=== PATIENT | male | born 1985 | race Caucasian/White ===

== ENCOUNTER 2020-02-12 23:53 | Emergency (ER) | payer OTHER ==
[~2020-02-12] VITALS: Ht 182.9 cm; Wt 75.0 kg
--- NOTE | 2020-02-13 00:12 | NUR ---
RELIEVING RN FOR BREAK, PT DID IV HEROIN TODAY, O2 SATS 80% ON ROOM AIR, LIGHT SNORING RESPIRATIONS, PT AROUSES EASILY BUT FALLS BACK ASLEEP, AND 02 SAT INCREASES TO 94% ON ROOM AIR, PLACED PT ON 6LITERS NASAL CANNULA
[2020-02-13] MEDS ORDERED: naloxone 0.4 mg/ml inj IV ONE (00:20)
--- NOTE | 2020-02-13 00:27 | NUR ---
NOTIFIED MD OF PTS DECREASED RESPIRATORY RATE AND LOW O2 SATS. PT STILL AROUSES WHEN TAPPED ON THE SHOULDER BUT IMMEDIATELY FALLS BACK TO SLEEP. VERBAL ORDER FOR 0.4 NARCAN INTRANASAL GIVEN AND TO BE ADMINISTERED.
--- NOTE | 2020-02-13 00:31 | NUR ---
PT TRIAGE NUMBER CHANGED DUE TO PT'S O2 STATUS. WILL CONTINUE TO MONITOR.
[2020-02-13] MEDS ORDERED: naloxone 2mg/2ml inj IV STA (00:36)
[2020-02-13] MEDS ORDERED: naloxone 2mg/2ml inj ONE (00:38)
--- NOTE | 2020-02-13 00:44 | NUR ---
NARCAN OVERRIDDEN DUE TO RESPIRATORY DEPRESSION
--- NOTE | 2020-02-13 01:36 | NUR ---
UPDATED ED MD LINN REGARDING PT'S RR RANGING FROM 8-10. PT STILL ON 5L NC; SHE INSTRUCTED TO START TITRATING O2 DOWN- PLACED PT ON 4.5L NC. PT MAINTAINING O2 SATS. WILL CONTINUE TO MONITOR.
--- NOTE | 2020-02-13 01:44 | NUR ---
PT NEEDING ANOTHER 1MG OF NARACAN; WILL GIVE THE REST OF THE 2MG DOSE (1MG) TO PT.
--- NOTE | 2020-02-13 01:57 | NUR ---
PT MOVED TO ROOM 15; JESSICA RN TAKING OVER CARE OF PATIENT. REPORT GIVEN.
--- NOTE | 2020-02-13 02:53 | NUR ---
IT HAS BEEN APPROX 1HR SINCE LAST ADMINISTRATION OF NARCAN. PT CONTINUES TO REST COMFORTABLY. HE HAS BEEN TITRATED DOWN TO RM AIR AND IS MAINTAINING HIS O2 SAT AT 97% - MD AWARE.
--- NOTE | 2020-02-13 04:08 | NUR ---
pt arouses easily but also drifts back to sleep almost instantly. He remains on monitoring equipment and continues to maintain oxygen saturation above 95% on room air. pt is polite and cooperative with staff.
--- NOTE | 2020-02-13 05:00 | NUR ---
pt awake and asking for water. He is given a large pitcher of water and offered food but he declines food at this time. Will continue to monitor.
--- NOTE | 2020-02-13 05:37 | NUR ---
MD at bedside for re-eval - pt is more alert and ready to be discharged soon. He states that he is staying at the [facility] -
[2020-02-13] MEDS ORDERED: NALO4SPR BOTHNARES (05:38)
[2020-02-13 06:05] VITALS: BP 129/86
== END 2020-02-13 06:07 | disposition home or self-care (01) ==
LOC: ER 23:53
DX: T40.1X1A Poisoning by heroin, accidental (unintentional), initial encounter (principal); F15.90 Other stimulant use, unspecified, uncomplicated; F11.90 Opioid use, unspecified, uncomplicated; R40.0 Somnolence; Z79.899 Other long term (current) drug therapy; Y92.89 Other specified places as the place of occurrence of the external cause
CPT/HCPCS: 96374; 99285; J2310